=== PATIENT | female | born 1960 ===

== ENCOUNTER 2019-11-17 11:00 | Outpatient (CLI) | payer BC | END 2019-11-17 11:01 | disposition home or self-care (01) | LOC: SLR 11:00 | PROVIDERS: ATTEND Internal Medicine Cardiovascular Disease | DX: G47.33 Obstructive sleep apnea (adult) (pediatric) (principal); R40.0 Somnolence | CPT/HCPCS: G0399 ==

== ENCOUNTER 2019-11-25 11:00 | Outpatient (CLI) | payer BC | END 2019-11-25 11:01 | disposition home or self-care (01) | LOC: SLR 11:00 | PROVIDERS: ATTEND Internal Medicine Cardiovascular Disease | DX: G47.33 Obstructive sleep apnea (adult) (pediatric) (principal); R06.83 Snoring | CPT/HCPCS: 95811 ==